=== PATIENT | female | born 2000 | race Caucasian/White ===

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

== ENCOUNTER 2021-01-02 17:45 | Emergency (ER) | payer OTHER ==
[~2021-01-02] VITALS: Ht 165.1 cm; Wt 74.4 kg
[2021-01-02 18:25] LABS: BILIRUBIN Negative (Negative); BLOOD Negative (Negative); CLARITY Clear (Clear); COLOR Yellow (Yellow); GLUCOSE Negative (Negative); KETONE Trace (Negative); LEUKO ESTERASE Trace (Negative); NITRITE Negative (Negative); SPECIFIC GRAVITY >= 1.030 (1.001-1.030)
[2021-01-02 18:31] LABS: BACTERIA 1+; MUCOUS 1+
[2021-01-02 18:54] LABS: BASO % 0.9 % (0.0-1.0); EOS # 0.5 10*3/uL (0.0-0.4); EOS % 10.2 % (1.0-4.0); HEMATOCRIT 40.3 % (37.0-47.0); LYMPH # 1.9 10*3/uL (1.3-4.4); LYMPH % 43.8 % (27.0-41.0); MEAN CELL VOLUME 77.9 fl (81.0-99.0); MEAN PLATELET VOLUME 11.2 fl (9.6-12.3); MONO # 0.3 10*3/uL (0.1-1.0); MONO % 6.6 % (3.0-9.0); NEUT # 1.7 10*3/uL (2.3-7.9); NEUT % 38.5 % (47.0-73.0); PLATELET COUNT AUTOMATED 265 10*3/uL (130-400); RED BLOOD COUNT 5.17 10*6/uL (4.10-5.10); RED CELL DISTRI WIDTH 14.9 % (0-14.5); WHITE BLOOD COUNT 4.4 10*3/uL (4.8-10.8)
[2021-01-02 19:14] LABS: ALBUMIN 4.3 gm/dl (3.1-4.5); ALKALINE PHOSPHATASE 61 U/L (45-117); BUN 14 mg/dl (7-24); CHLORIDE 112 mmol/L (98-107); CREATININE 0.84 mg/dL (0.55-1.02); POTASSIUM 3.5 mmol/L (3.5-5.1); SGOT/AST 17 IU/L (3-35); SGPT/ALT 25 U/L (12-78); SODIUM 140 mmol/L (136-145); TOTAL PROTEIN 7.7 gm/dL (6.4-8.2)
[2021-01-03] MEDS ORDERED: CYCLOBENZAPRINE10 MG PO (00:46)
== END 2021-01-03 01:32 | disposition home or self-care (01) ==
LOC: ED 17:45
PROVIDERS: Physician Assistant
DX: R10.31 Right lower quadrant pain (principal); R10.32 Left lower quadrant pain; M54.5 Low back pain; R35.0 Frequency of micturition; Z79.899 Other long term (current) drug therapy

== ENCOUNTER 2021-02-20 13:31 | Emergency (ER) | payer OTHER ==
[~2021-02-20 13:31] MED LIST changes: +CYCLOBENZAPRINE10 MG PO
[2021-02-20] MEDS ORDERED: PROVENTIL HFA6.7 GM INH (14:38)
[2021-02-20] MEDS ORDERED: NAPROXEN250 MG PO (14:38)
[2021-02-20] MEDS ORDERED: TYLENOL325 M1 PO (14:38)
== END 2021-02-20 15:04 | disposition home or self-care (01) ==
LOC: ED 13:31
DX: J45.909 Unspecified asthma, uncomplicated (principal); R07.89 Other chest pain; M25.512 Pain in left shoulder; R06.02 Shortness of breath; E66.9 Obesity, unspecified; Z79.899 Other long term (current) drug therapy; Z68.30 Body mass index [BMI] 30.0-30.9, adult

== ENCOUNTER 2021-07-11 21:34 | Emergency (ER) | payer OTHER ==
[~2021-07-11] VITALS: Ht 170.1 cm; Wt 68.9 kg
[~2021-07-11 21:34] MED LIST changes: +NAPROXEN250 MG PO; +TYLENOL325 M1 PO
[2021-07-11] MEDS ORDERED: VENTOLIN 02.5 MG/3 M INH (22:01)
[2021-07-11] MEDS ORDERED: MONTELUKAST SOD10 MG PO (22:01)
[2021-07-11] MEDS ORDERED: ADVAIR HFA 115-12 GM INH (22:02)
[2021-07-11] MEDS ORDERED: MUCINEX ER600 MG PO (22:02)
[2021-07-11] MEDS ORDERED: PREDNISONE50 MG PO (22:58)
== END 2021-07-11 23:23 | disposition home or self-care (01) ==
LOC: ED 21:34
DX: J45.901 Unspecified asthma with (acute) exacerbation (principal); Z79.899 Other long term (current) drug therapy

== ENCOUNTER → 2021-07-13 | Outpatient (CLI) | payer OTHER ==
[~2021-07-13] MED LIST changes: +ADVAIR HFA 115-12 GM INH; +MONTELUKAST SOD10 MG PO; +MUCINEX ER600 MG PO; +PREDNISONE50 MG PO
[2021-07-13 15:57] LABS: BASO % 0.8 % (0.0-1.0); EOS # 0.1 10*3/uL (0.0-0.4); EOS % 1.2 % (1.0-4.0); HEMATOCRIT 41.8 % (37.0-47.0); LYMPH # 2.2 10*3/uL (1.3-4.4); LYMPH % 43.3 % (27.0-41.0); MEAN CELL VOLUME 78.4 fl (81.0-99.0); MEAN CORPUSCULAR HGB 24.2 pg (27.0-31.0); MEAN CORPUSCULAR HGB CONC 30.9 g/dl (33.0-37.0); MEAN PLATELET VOLUME 10.4 fl (9.6-12.3); MONO # 0.3 10*3/uL (0.1-1.0); MONO % 4.8 % (3.0-9.0); NEUT # 2.6 10*3/uL (2.3-7.9); NEUT % 49.7 % (47.0-73.0); PLATELET COUNT AUTOMATED 295 10*3/uL (130-400); RED BLOOD COUNT 5.33 10*6/uL (4.10-5.10); RED CELL DISTRI WIDTH 14.6 % (0-14.5); WHITE BLOOD COUNT 5.2 10*3/uL (4.8-10.8)
== END | disposition home or self-care (01) ==
LOC: LAB 15:00
PROVIDERS: ATTEND Internal Medicine Critical Care Medicine
DX: J45.40 Moderate persistent asthma, uncomplicated (principal); J30.2 Other seasonal allergic rhinitis; J45.41 Moderate persistent asthma with (acute) exacerbation; Z79.899 Other long term (current) drug therapy; J84.9 Interstitial pulmonary disease, unspecified

== ENCOUNTER 2021-08-24 15:26 | Emergency (ER) | payer OTHER ==
[~2021-08-24] VITALS: Ht 167.6 cm; Wt 79.4 kg
[2021-08-24 16:45] LABS: BASO % 0.4 % (0.0-1.0); EOS # 0.2 10*3/uL (0.0-0.4); EOS % 3.4 % (1.0-4.0); HEMATOCRIT 39.6 % (37.0-47.0); LYMPH # 1.6 10*3/uL (1.3-4.4); LYMPH % 31.4 % (27.0-41.0); MEAN CELL VOLUME 76.2 fl (81.0-99.0); MEAN CORPUSCULAR HGB 24.2 pg (27.0-31.0); MEAN CORPUSCULAR HGB CONC 31.8 g/dl (33.0-37.0); MEAN PLATELET VOLUME 9.8 fl (9.6-12.3); MONO # 0.4 10*3/uL (0.1-1.0); MONO % 7.3 % (3.0-9.0); NEUT # 2.9 10*3/uL (2.3-7.9); NEUT % 57.1 % (47.0-73.0); PLATELET COUNT AUTOMATED 243 10*3/uL (130-400); RED CELL DISTRI WIDTH 15.3 % (0-14.5); WHITE BLOOD COUNT 5.1 10*3/uL (4.8-10.8)
[2021-08-24 17:00] LABS: ALBUMIN 3.9 gm/dl (3.1-4.5); ALKALINE PHOSPHATASE 51 U/L (45-117); BUN 12 mg/dl (7-24); CHLORIDE 108 mmol/L (98-107); CREATININE 0.83 mg/dL (0.55-1.02); LIPASE 89 U/L (73-393); POTASSIUM 3.6 mmol/L (3.5-5.1); SGOT/AST 15 IU/L (3-35); SGPT/ALT 28 U/L (12-78); SODIUM 139 mmol/L (136-145); TOTAL PROTEIN 7.7 gm/dL (6.4-8.2)
[2021-08-24 17:03] LABS: BETA-HCG, QUANT < 1.0 mIU/mL (1-3)
[2021-08-24] MEDS ORDERED: MECLIZINE HCL25 M2 PO (18:45)
== END 2021-08-24 18:53 | disposition home or self-care (01) ==
LOC: ED 15:26
PROVIDERS: Emergency Medicine
DX: R42 Dizziness and giddiness (principal)

== ENCOUNTER 2021-10-09 21:20 | Emergency (ER) | payer OTHER ==
[~2021-10-09] VITALS: Wt 77.6 kg
[~2021-10-09 21:20] MED LIST changes: +MECLIZINE HCL25 M2 PO
[2021-10-09 21:58] LABS: BILIRUBIN Negative (Negative); BLOOD Negative (Negative); CLARITY Clear (Clear); COLOR Yellow (Yellow); GLUCOSE Negative (Negative); KETONE Negative (Negative); LEUKO ESTERASE Negative (Negative); NITRITE Negative (Negative); SPECIFIC GRAVITY >= 1.030 (1.001-1.030)
[2021-10-09 22:25] LABS: MUCOUS 1+
[2021-10-09 22:53] LABS: BASO % 0.7 % (0.0-1.0); EOS # 0.3 10*3/uL (0.0-0.4); EOS % 5.3 % (1.0-4.0); HEMATOCRIT 41.8 % (37.0-47.0); LYMPH # 2.6 10*3/uL (1.3-4.4); LYMPH % 42.5 % (27.0-41.0); MEAN CELL VOLUME 77.4 fl (81.0-99.0); MEAN CORPUSCULAR HGB CONC 32.3 g/dl (33.0-37.0); MEAN PLATELET VOLUME 9.9 fl (9.6-12.3); MONO # 0.3 10*3/uL (0.1-1.0); MONO % 5.6 % (3.0-9.0); NEUT # 2.7 10*3/uL (2.3-7.9); NEUT % 45.4 % (47.0-73.0); PLATELET COUNT AUTOMATED 316 10*3/uL (130-400); RED CELL DISTRI WIDTH 14.8 % (0-14.5)
[2021-10-09 23:09] LABS: ALBUMIN 4.1 gm/dl (3.1-4.5); ALKALINE PHOSPHATASE 58 U/L (45-117); BUN 10 mg/dl (7-24); CHLORIDE 107 mmol/L (98-107); LIPASE 79 U/L (73-393); POTASSIUM 3.7 mmol/L (3.5-5.1); SGOT/AST 23 IU/L (3-35); SGPT/ALT 32 U/L (12-78); SODIUM 139 mmol/L (136-145); TOTAL PROTEIN 7.8 gm/dL (6.4-8.2)
== END 2021-10-10 01:38 | disposition home or self-care (01) ==
LOC: ED 21:20
PROVIDERS: Emergency Medicine
DX: R10.9 Unspecified abdominal pain (principal)

== ENCOUNTER 2022-04-22 22:02 | Emergency (ER) | payer OTHER ==
[2022-04-22] MEDS ORDERED: CLINDAMYCIN HC300 MG PO (22:42)
== END 2022-04-22 22:59 | disposition home or self-care (01) ==
LOC: ED 22:02
DX: L73.9 Follicular disorder, unspecified (principal); Z79.899 Other long term (current) drug therapy

== ENCOUNTER 2022-04-30 05:11 | Emergency (ER) | payer OTHER ==
[~2022-04-30] VITALS: Wt 97.1 kg
[~2022-04-30 05:11] MED LIST changes: +CLINDAMYCIN HC300 MG PO
[2022-04-30] MEDS ORDERED: HYDROCODONE-AC1 EAC1 PO (05:38)
[2022-04-30] MEDS ORDERED: SEPTDS PO (05:38)
== END 2022-04-30 05:50 | disposition home or self-care (01) ==
LOC: ED 05:11
DX: L02.214 Cutaneous abscess of groin (principal); Z79.899 Other long term (current) drug therapy

== ENCOUNTER 2022-05-21 19:17 | Emergency (ER) | payer OTHER ==
[~2022-05-21] VITALS: Ht 167.6 cm; Wt 97.5 kg
[~2022-05-21 19:17] MED LIST changes: +HYDROCODONE-AC1 EAC1 PO; +SEPTDS PO
[2022-05-21] MEDS ORDERED: SYMB160 INH (19:58)
[2022-05-21] MEDS ORDERED: AMOXICILLIN500 M2 PO (20:35)
== END 2022-05-21 21:04 | disposition home or self-care (01) ==
LOC: ED 19:17
DX: H65.92 Unspecified nonsuppurative otitis media, left ear (principal); H72.92 Unspecified perforation of tympanic membrane, left ear

== ENCOUNTER 2022-06-11 00:23 | Emergency (ER) | payer OTHER ==
[~2022-06-11] VITALS: Ht 167.6 cm; Wt 106.6 kg
[~2022-06-11 00:23] MED LIST changes: +SYMB160 INH
[2022-06-11] MEDS ORDERED: AMOXICILLIN500 M2 PO (02:47)
== END 2022-06-11 02:51 | disposition home or self-care (01) ==
LOC: ED 00:23
DX: J02.9 Acute pharyngitis, unspecified (principal); J45.909 Unspecified asthma, uncomplicated; E66.9 Obesity, unspecified; Z79.899 Other long term (current) drug therapy; Z68.30 Body mass index [BMI] 30.0-30.9, adult

== ENCOUNTER 2022-06-16 06:33 | Emergency (ER) | payer OTHER ==
[~2022-06-16] VITALS: Ht 167.6 cm; Wt 115.7 kg
[2022-06-16 06:59] LABS: BASO % 0.4 % (0.0-1.0); EOS # 0.3 10*3/uL (0.0-0.4); EOS % 3.8 % (1.0-4.0); HEMATOCRIT 37.6 % (37.0-47.0); LYMPH # 1.6 10*3/uL (1.3-4.4); MEAN CELL VOLUME 77.2 fl (81.0-99.0); MEAN CORPUSCULAR HGB 24.8 pg (27.0-31.0); MEAN CORPUSCULAR HGB CONC 32.2 g/dl (33.0-37.0); MEAN PLATELET VOLUME 9.8 fl (9.6-12.3); MONO # 0.4 10*3/uL (0.1-1.0); MONO % 6.2 % (3.0-9.0); NEUT # 4.5 10*3/uL (2.3-7.9); NEUT % 65.3 % (47.0-73.0); PLATELET COUNT AUTOMATED 280 10*3/uL (130-400); RED BLOOD COUNT 4.87 10*6/uL (4.10-5.10); RED CELL DISTRI WIDTH 14.3 % (0-14.5); WHITE BLOOD COUNT 6.8 10*3/uL (4.8-10.8)
[2022-06-16 07:12] LABS: BUN 12 mg/dl (7-24); CHLORIDE 108 mmol/L (98-107); CREATININE 0.81 mg/dL (0.55-1.02); SODIUM 139 mmol/L (136-145)
== END 2022-06-16 10:06 | disposition home or self-care (01) ==
LOC: ED 06:33
PROVIDERS: Internal Medicine
DX: B27.90 Infectious mononucleosis, unspecified without complication (principal)

== ENCOUNTER 2022-10-25 16:54 | Emergency (ER) | payer OTHER ==
[~2022-10-25] VITALS: Wt 61.2 kg
[2022-10-25] MEDS ORDERED: SINGULAIR10 M1 PO (17:14)
[2022-10-25] MEDS ORDERED: ZYRTEC10 M2 PO (17:14)
== END 2022-10-25 18:22 | disposition home or self-care (01) ==
LOC: ED 16:54
DX: S61.303A Unspecified open wound of left middle finger with damage to nail, initial encounter (principal); J45.909 Unspecified asthma, uncomplicated; K21.9 Gastro-esophageal reflux disease without esophagitis; W51.XXXA Accidental striking against or bumped into by another person, initial encounter; Y93.72 Activity, wrestling; Y92.39 Other specified sports and athletic area as the place of occurrence of the external cause; Y99.8 Other external cause status

== ENCOUNTER 2022-11-17 10:23 | Emergency (ER) | payer OTHER ==
[~2022-11-17] VITALS: Wt 99.8 kg
[~2022-11-17 10:23] MED LIST changes: +SINGULAIR10 M1 PO; +ZYRTEC10 M2 PO
[2022-11-17] MEDS ORDERED: BENZONATATE100 M1 PO (10:50)
[2022-11-17] MEDS ORDERED: IBU800 M2 PO (10:50)
== END 2022-11-17 11:05 | disposition home or self-care (01) ==
LOC: ED 10:23
DX: S29.011A Strain of muscle and tendon of front wall of thorax, initial encounter (principal); J06.9 Acute upper respiratory infection, unspecified; R05.9 Cough, unspecified; J45.909 Unspecified asthma, uncomplicated; K21.9 Gastro-esophageal reflux disease without esophagitis; X58.XXXA Exposure to other specified factors, initial encounter; Y93.89 Activity, other specified; Y92.009 Unspecified place in unspecified non-institutional (private) residence as the place of occurrence of the external cause; Y99.8 Other external cause status

== ENCOUNTER 2022-12-20 06:08 | Emergency (ER) | payer OTHER ==
[~2022-12-20] VITALS: Ht 165.1 cm; Wt 99.8 kg
[~2022-12-20 06:08] MED LIST changes: +BENZONATATE100 M1 PO; +IBU800 M2 PO
[2022-12-20] MEDS ORDERED: PROVENTIL HFA6.7 GM INH ×2 (06:34→06:42)
[2022-12-20] MEDS ORDERED: ZITHROMAX250 MG PO (06:34)
[2022-12-20] MEDS ORDERED: MEDROL DOSEPAK4 MG PO (06:34)
== END 2022-12-20 07:00 | disposition home or self-care (01) ==
LOC: ED 06:08
DX: J45.909 Unspecified asthma, uncomplicated (principal); K21.9 Gastro-esophageal reflux disease without esophagitis; Z88.8 Allergy status to other drugs, medicaments and biological substances

== ENCOUNTER 2023-01-01 20:51 | Emergency (ER) | payer OTHER ==
[~2023-01-01] VITALS: Ht 165.1 cm; Wt 99.8 kg
== END 2023-01-01 22:17 | disposition home or self-care (01) ==
LOC: ED 20:51
DX: S90.31XA Contusion of right foot, initial encounter (principal); J45.909 Unspecified asthma, uncomplicated; K21.9 Gastro-esophageal reflux disease without esophagitis; Z88.8 Allergy status to other drugs, medicaments and biological substances; W31.89XA Contact with other specified machinery, initial encounter; Y93.89 Activity, other specified; Y92.89 Other specified places as the place of occurrence of the external cause; Y99.0 Civilian activity done for income or pay

== ENCOUNTER 2023-02-13 00:45 | Emergency (ER) | payer OTHER ==
[~2023-02-13] VITALS: Ht 165.1 cm; Wt 98.0 kg
[2023-02-13 01:56] LABS: BASO % 0.6 % (0.0-1.0); EOS % 0.3 % (1.0-4.0); HEMATOCRIT 39.7 % (37.0-47.0); LYMPH # 2.1 10*3/uL (1.3-4.4); LYMPH % 32.3 % (27.0-41.0); MEAN CELL VOLUME 79.7 fl (81.0-99.0); MEAN CORPUSCULAR HGB 25.7 pg (27.0-31.0); MEAN CORPUSCULAR HGB CONC 32.2 g/dl (33.0-37.0); MEAN PLATELET VOLUME 9.9 fl (9.6-12.3); MONO # 0.3 10*3/uL (0.1-1.0); MONO % 5.1 % (3.0-9.0); NEUT % 61.4 % (47.0-73.0); PLATELET COUNT AUTOMATED 301 10*3/uL (130-400); RED BLOOD COUNT 4.98 10*6/uL (4.10-5.10); RED CELL DISTRI WIDTH 14.6 % (0-14.5); WHITE BLOOD COUNT 6.5 10*3/uL (4.8-10.8)
[2023-02-13 02:22] LABS: ALKALINE PHOSPHATASE 52 U/L (46-116); BUN 16 mg/dl (9-23); CHLORIDE 108 mmol/L (98-107); POTASSIUM 3.8 mmol/L (3.4-5.1); SGPT/ALT 12 U/L (10-49); TOTAL PROTEIN 7.8 gm/dL (6.0-8.0)
[2023-02-13] MEDS ORDERED: SYMB160 INH (03:32)
[2023-02-13] MEDS ORDERED: ZITHROMAX250 MG PO (03:32)
[2023-02-13] MEDS ORDERED: BENZONATATE200 MG PO (03:32)
== END 2023-02-13 03:53 | disposition home or self-care (01) ==
LOC: ED 00:45
PROVIDERS: Emergency Medicine
DX: J45.909 Unspecified asthma, uncomplicated (principal); J44.1 Chronic obstructive pulmonary disease with (acute) exacerbation; E87.8 Other disorders of electrolyte and fluid balance, not elsewhere classified; E83.41 Hypermagnesemia; E83.39 Other disorders of phosphorus metabolism; K21.9 Gastro-esophageal reflux disease without esophagitis; Z88.8 Allergy status to other drugs, medicaments and biological substances

== ENCOUNTER 2023-04-11 20:11 | Emergency (ER) | payer OTHER ==
[~2023-04-11] VITALS: Ht 165.1 cm; Wt 95.3 kg
[~2023-04-11 20:11] MED LIST changes: +BENZONATATE200 MG PO
== END 2023-04-11 23:07 | disposition home or self-care (01) ==
LOC: ED 20:11
DX: H93.91 Unspecified disorder of right ear (principal); J45.909 Unspecified asthma, uncomplicated; K21.9 Gastro-esophageal reflux disease without esophagitis

== ENCOUNTER 2023-04-29 19:37 | Emergency (ER) | payer OTHER ==
[~2023-04-29] VITALS: Ht 167.6 cm; Wt 98.0 kg
[2023-04-29] MEDS ORDERED: AMOX-CLAV 875-1 EACH PO (19:51)
== END 2023-04-29 21:10 | disposition home or self-care (01) ==
LOC: ED 19:37
DX: J02.8 Acute pharyngitis due to other specified organisms (principal); R51.9 Headache, unspecified; J45.909 Unspecified asthma, uncomplicated; K21.9 Gastro-esophageal reflux disease without esophagitis; Z88.8 Allergy status to other drugs, medicaments and biological substances; Z20.822 Contact with and (suspected) exposure to COVID-19

== ENCOUNTER 2023-07-10 13:22 | Emergency (ER) | payer OTHER ==
[~2023-07-10] VITALS: Wt 98.9 kg
[~2023-07-10 13:22] MED LIST changes: +AMOX-CLAV 875-1 EACH PO; +CIPRO500 MG PO
[2023-07-10 14:14] LABS: BILIRUBIN Negative (Negative); BLOOD Negative (Negative); CLARITY Clear (Clear); COLOR Yellow (Yellow); GLUCOSE Negative (Negative); KETONE Trace (Negative); LEUKO ESTERASE Negative (Negative); NITRITE Negative (Negative); SPECIFIC GRAVITY >= 1.030 (1.001-1.030)
[2023-07-10 14:16] LABS: BASO % 0.8 % (0.0-1.0); EOS # 0.2 10*3/uL (0.0-0.4); EOS % 5.7 % (1.0-4.0); HEMATOCRIT 36.2 % (37.0-47.0); LYMPH # 1.4 10*3/uL (1.3-4.4); LYMPH % 36.1 % (27.0-41.0); MEAN CELL VOLUME 79.2 fl (81.0-99.0); MEAN CORPUSCULAR HGB CONC 32.9 g/dl (33.0-37.0); MEAN PLATELET VOLUME 10.3 fl (9.6-12.3); MONO # 0.3 10*3/uL (0.1-1.0); MONO % 6.5 % (3.0-9.0); NEUT % 50.9 % (47.0-73.0); PLATELET COUNT AUTOMATED 237 10*3/uL (130-400); RED BLOOD COUNT 4.57 10*6/uL (4.10-5.10); RED CELL DISTRI WIDTH 15.3 % (0-14.5); WHITE BLOOD COUNT 3.9 10*3/uL (4.8-10.8)
[2023-07-10 14:30] LABS: BACTERIA TRACE; MUCOUS 1+
[2023-07-10 14:36] LABS: ALKALINE PHOSPHATASE 53 U/L (46-116); BUN 8 mg/dl (9-23); CHLORIDE 109 mmol/L (98-107); POTASSIUM 3.9 mmol/L (3.4-5.1); SGPT/ALT 14 U/L (5-49); TOTAL PROTEIN 7.1 gm/dL (6.0-8.0)
== END 2023-07-10 15:15 | disposition home or self-care (01) ==
LOC: ED 13:22
PROVIDERS: Nurse Practitioner Family
DX: Z11.3 Encounter for screening for infections with a predominantly sexual mode of transmission (principal); J45.909 Unspecified asthma, uncomplicated; K21.9 Gastro-esophageal reflux disease without esophagitis

== ENCOUNTER 2023-07-30 13:50 | Emergency (ER) | payer OTHER ==
[~2023-07-30] VITALS: Ht 165.1 cm; Wt 98.0 kg
== END 2023-07-30 18:32 | disposition left against medical advice (07) ==
LOC: ED 13:50
DX: R10.9 Unspecified abdominal pain (principal); Z53.21 Procedure and treatment not carried out due to patient leaving prior to being seen by health care provider

== ENCOUNTER 2023-07-30 20:44 | Emergency (ER) | payer OTHER | END 2023-07-30 23:12 | disposition left against medical advice (07) | LOC: ED 20:44 | DX: R10.9 Unspecified abdominal pain (principal); Z53.21 Procedure and treatment not carried out due to patient leaving prior to being seen by health care provider ==

== ENCOUNTER 2023-08-09 10:26 | Emergency (ER) | payer OTHER ==
[~2023-08-09] VITALS: Wt 94.3 kg
[2023-08-09] MEDS ORDERED: VENT7GM INH (10:36)
[2023-08-09 10:56] LABS: BASO % 0.8 % (0.0-1.0); EOS # 0.1 10*3/uL (0.0-0.4); HEMATOCRIT 36.7 % (37.0-47.0); LYMPH # 1.3 10*3/uL (1.3-4.4); LYMPH % 26.5 % (27.0-41.0); MEAN CELL VOLUME 78.4 fl (81.0-99.0); MEAN CORPUSCULAR HGB 25.4 pg (27.0-31.0); MEAN CORPUSCULAR HGB CONC 32.4 g/dl (33.0-37.0); MEAN PLATELET VOLUME 9.4 fl (9.6-12.3); MONO # 0.3 10*3/uL (0.1-1.0); NEUT # 3.2 10*3/uL (2.3-7.9); NEUT % 65.7 % (47.0-73.0); PLATELET COUNT AUTOMATED 256 10*3/uL (130-400); RED BLOOD COUNT 4.68 10*6/uL (4.10-5.10); RED CELL DISTRI WIDTH 15.2 % (0-14.5); WHITE BLOOD COUNT 4.8 10*3/uL (4.8-10.8)
[2023-08-09 11:41] LABS: ALKALINE PHOSPHATASE 48 U/L (46-116); BUN 12 mg/dl (9-23); CHLORIDE 106 mmol/L (98-107); LIPASE 30 U/L (12-53); POTASSIUM 3.7 mmol/L (3.4-5.1); SGPT/ALT 13 U/L (5-49); TOTAL PROTEIN 7.4 gm/dL (6.0-8.0)
[2023-08-09 12:07] LABS: BILIRUBIN Negative (Negative); BLOOD Negative (Negative); CLARITY Cloudy (Clear); COLOR Yellow (Yellow); GLUCOSE Negative (Negative); KETONE 2+ (Negative); LEUKO ESTERASE 1+ (Negative); NITRITE Negative (Negative); PH 5.5 (4.5-8.0); SPECIFIC GRAVITY >= 1.030 (1.001-1.030)
[2023-08-09 12:22] LABS: BACTERIA 1+; MUCOUS 1+
[2023-08-09] MEDS ORDERED: CEPHALEXIN500 M1 PO (13:48)
== END 2023-08-09 13:52 | disposition home or self-care (01) ==
LOC: ED 10:26
PROVIDERS: Emergency Medicine
DX: O21.9 Vomiting of pregnancy, unspecified (principal); R10.2 Pelvic and perineal pain; J45.909 Unspecified asthma, uncomplicated; K21.9 Gastro-esophageal reflux disease without esophagitis; Z88.8 Allergy status to other drugs, medicaments and biological substances; Z3A.09 9 weeks gestation of pregnancy; Z98.890 Other specified postprocedural states

== ENCOUNTER 2023-08-10 17:15 | Emergency (ER) | payer OTHER ==
[~2023-08-10] VITALS: Ht 165.1 cm; Wt 94.3 kg
[~2023-08-10 17:15] MED LIST changes: +VENT7GM INH
[2023-08-10 18:34] LABS: BASO % 0.3 % (0.0-1.0); EOS % 0.2 % (1.0-4.0); HEMATOCRIT 37.2 % (37.0-47.0); LYMPH # 1.1 10*3/uL (1.3-4.4); LYMPH % 17.1 % (27.0-41.0); MEAN CORPUSCULAR HGB 25.5 pg (27.0-31.0); MEAN CORPUSCULAR HGB CONC 32.3 g/dl (33.0-37.0); MEAN PLATELET VOLUME 10.3 fl (9.6-12.3); MONO # 0.3 10*3/uL (0.1-1.0); MONO % 4.7 % (3.0-9.0); NEUT # 4.9 10*3/uL (2.3-7.9); NEUT % 77.4 % (47.0-73.0); PLATELET COUNT AUTOMATED 265 10*3/uL (130-400); RED BLOOD COUNT 4.71 10*6/uL (4.10-5.10); RED CELL DISTRI WIDTH 15.3 % (0-14.5); WHITE BLOOD COUNT 6.4 10*3/uL (4.8-10.8)
[2023-08-10 18:55] LABS: ALKALINE PHOSPHATASE 51 U/L (46-116); BUN 12 mg/dl (9-23); CHLORIDE 105 mmol/L (98-107); SGPT/ALT 13 U/L (5-49); TOTAL PROTEIN 7.6 gm/dL (6.0-8.0)
== END 2023-08-10 20:51 | disposition home or self-care (01) ==
LOC: ED 17:15
PROVIDERS: Nurse Practitioner
DX: O21.0 Mild hyperemesis gravidarum (principal); R55 Syncope and collapse; J45.909 Unspecified asthma, uncomplicated; K21.9 Gastro-esophageal reflux disease without esophagitis; Z3A.09 9 weeks gestation of pregnancy

== ENCOUNTER 2023-09-10 17:47 | Emergency (ER) | payer OTHER ==
[~2023-09-10] VITALS: Ht 165.1 cm; Wt 94.3 kg
[2023-09-10] MEDS ORDERED: SLEEP AID25 M1 PO (18:15)
[2023-09-10 18:32] LABS: BASO % 0.5 % (0.0-1.0); EOS # 0.5 10*3/uL (0.0-0.4); EOS % 5.3 % (1.0-4.0); HEMATOCRIT 37.9 % (37.0-47.0); LYMPH # 1.9 10*3/uL (1.3-4.4); LYMPH % 22.3 % (27.0-41.0); MEAN CELL VOLUME 80.6 fl (81.0-99.0); MEAN CORPUSCULAR HGB 25.3 pg (27.0-31.0); MEAN CORPUSCULAR HGB CONC 31.4 g/dl (33.0-37.0); MEAN PLATELET VOLUME 10.1 fl (9.6-12.3); MONO # 0.5 10*3/uL (0.1-1.0); NEUT # 5.6 10*3/uL (2.3-7.9); NEUT % 65.7 % (47.0-73.0); PLATELET COUNT AUTOMATED 257 10*3/uL (130-400); RED CELL DISTRI WIDTH 14.9 % (0-14.5); WHITE BLOOD COUNT 8.5 10*3/uL (4.8-10.8)
[2023-09-10 18:36] LABS: BILIRUBIN Negative (Negative); BLOOD Negative (Negative); CLARITY Clear (Clear); COLOR Yellow (Yellow); GLUCOSE Negative (Negative); KETONE Trace (Negative); LEUKO ESTERASE Negative (Negative); NITRITE Negative (Negative); SPECIFIC GRAVITY >= 1.030 (1.001-1.030)
[2023-09-10 18:46] LABS: MUCOUS 2+
[2023-09-10 18:59] LABS: ALKALINE PHOSPHATASE 45 U/L (46-116); BUN 13 mg/dl (9-23); CHLORIDE 105 mmol/L (98-107); POTASSIUM 3.8 mmol/L (3.4-5.1); SGPT/ALT 9 U/L (5-49); TOTAL PROTEIN 7.1 gm/dL (6.0-8.0)
== END 2023-09-10 19:20 | disposition home or self-care (01) ==
LOC: ED 17:47
PROVIDERS: Physician Assistant Medical
DX: O26.851 Spotting complicating pregnancy, first trimester (principal); Z79.899 Other long term (current) drug therapy; Z3A.11 11 weeks gestation of pregnancy

== ENCOUNTER 2023-09-17 21:08 | Emergency (ER) | payer OTHER ==
[~2023-09-17 21:08] MED LIST changes: +SLEEP AID25 M1 PO
[2023-09-17 23:20] LABS: BASO % 0.4 % (0.0-1.0); EOS # 0.5 10*3/uL (0.0-0.4); EOS % 5.7 % (1.0-4.0); HEMATOCRIT 37.2 % (37.0-47.0); LYMPH # 2.3 10*3/uL (1.3-4.4); LYMPH % 27.6 % (27.0-41.0); MEAN CELL VOLUME 80.2 fl (81.0-99.0); MEAN CORPUSCULAR HGB 26.1 pg (27.0-31.0); MEAN CORPUSCULAR HGB CONC 32.5 g/dl (33.0-37.0); MONO # 0.5 10*3/uL (0.1-1.0); MONO % 5.5 % (3.0-9.0); NEUT # 5.1 10*3/uL (2.3-7.9); NEUT % 60.6 % (47.0-73.0); PLATELET COUNT AUTOMATED 258 10*3/uL (130-400); RED BLOOD COUNT 4.64 10*6/uL (4.10-5.10); WHITE BLOOD COUNT 8.4 10*3/uL (4.8-10.8)
[2023-09-17 23:23] LABS: BILIRUBIN Negative (Negative); BLOOD Negative (Negative); CLARITY Cloudy (Clear); COLOR Yellow (Yellow); GLUCOSE Negative (Negative); KETONE Trace (Negative); LEUKO ESTERASE 1+ (Negative); NITRITE Negative (Negative); SPECIFIC GRAVITY 1.025 (1.001-1.030)
[2023-09-17 23:33] LABS: BACTERIA 1+; EPITHELIAL CELLS 16-20; MUCOUS 1+
[2023-09-17 23:41] LABS: ACT PARTIAL THROMBO TIME 27.4 SECONDS (20.0-32.1)
[2023-09-17 23:52] LABS: ALKALINE PHOSPHATASE 43 U/L (46-116); BUN 9 mg/dl (9-23); CHLORIDE 106 mmol/L (98-107); LIPASE 48 U/L (12-53); POTASSIUM 3.8 mmol/L (3.4-5.1); SGPT/ALT 15 U/L (5-49); TOTAL PROTEIN 7.4 gm/dL (6.0-8.0)
[2023-09-18] MEDS ORDERED: AMOX-CLAV 875-1 EACH PO (00:31)
== END 2023-09-18 01:38 | disposition home or self-care (01) ==
LOC: ED 21:08
PROVIDERS: Internal Medicine
DX: O23.41 Unspecified infection of urinary tract in pregnancy, first trimester (principal); N39.0 Urinary tract infection, site not specified; O26.851 Spotting complicating pregnancy, first trimester; J45.909 Unspecified asthma, uncomplicated; K21.9 Gastro-esophageal reflux disease without esophagitis; Z3A.12 12 weeks gestation of pregnancy; R10.2 Pelvic and perineal pain

== ENCOUNTER 2023-12-30 15:46 | Emergency (ER) | payer OTHER ==
[~2023-12-30] VITALS: Wt 94.3 kg
[2023-12-30] MEDS ORDERED: AZITHROMYCIN 250 MG TAB PO ONE (16:30)
[2023-12-30 16:56] LABS: BILIRUBIN Negative (Negative); BLOOD Negative (Negative); CLARITY Cloudy (Clear); COLOR Dark Yellow (Yellow); GLUCOSE Negative (Negative); KETONE Trace (Negative); LEUKO ESTERASE 1+ (Negative); NITRITE Negative (Negative); SPECIFIC GRAVITY >= 1.030 (1.001-1.030)
[2023-12-30 17:05] LABS: BACTERIA 2+; EPITHELIAL CELLS TNTC
[2023-12-30 17:06] LABS: MUCOUS 2+
[2023-12-30] MEDS ORDERED: Lidocaine Hydrochloride 2 ML AMP IM ONE (17:10)
[2023-12-30] MEDS ORDERED: MACROBID100 M1 PO (17:12)
[2023-12-30] MEDS ORDERED: Lidocaine Hydrochloride 2 ML IV ONE (17:17)
== END 2023-12-30 17:32 | disposition short-term general hospital (02) ==
LOC: ED 15:46
PROVIDERS: Internal Medicine
DX: O26.892 Other specified pregnancy related conditions, second trimester (principal); R82.71 Bacteriuria; J45.909 Unspecified asthma, uncomplicated; K21.9 Gastro-esophageal reflux disease without esophagitis; Z3A.24 24 weeks gestation of pregnancy

== ENCOUNTER 2024-02-18 19:55 | Emergency (ER) | payer OTHER ==
[~2024-02-18] VITALS: Ht 165.1 cm; Wt 99.8 kg
[2024-02-18] MEDS ORDERED: ACETAMINOPHEN 325 MG TAB PO ONE (20:30)
== END 2024-02-18 20:47 | disposition home or self-care (01) ==
LOC: ED 19:55
DX: O9A.211 Injury, poisoning and certain other consequences of external causes complicating pregnancy, first trimester (principal); O99.511 Diseases of the respiratory system complicating pregnancy, first trimester; S00.412A Abrasion of left ear, initial encounter; J45.909 Unspecified asthma, uncomplicated; K21.9 Gastro-esophageal reflux disease without esophagitis; Z3A.00 Weeks of gestation of pregnancy not specified; X58.XXXA Exposure to other specified factors, initial encounter; Y93.89 Activity, other specified; Y92.009 Unspecified place in unspecified non-institutional (private) residence as the place of occurrence of the external cause; Y99.8 Other external cause status

== ENCOUNTER 2024-05-18 13:12 | Emergency (ER) | payer OTHER ==
[~2024-05-18] VITALS: Ht 165.1 cm; Wt 95.3 kg
[2024-05-18] MEDS ORDERED: methylPREDNISolone sod succ 125 MG VIAL IM ONE (14:05)
[2024-05-18] MEDS ORDERED: Albuterol Sulfate 2.5 MG/3 ML VIAL NEB ONE (14:05)
[2024-05-18] MEDS ORDERED: AVPAK AZITHROM250 M1 PO (14:07)
[2024-05-18] MEDS ORDERED: PREDNISONE20 M1 PO (14:07)
== END 2024-05-18 14:55 | disposition home or self-care (01) ==
LOC: ED 13:12
DX: J45.901 Unspecified asthma with (acute) exacerbation (principal); K21.9 Gastro-esophageal reflux disease without esophagitis

== ENCOUNTER 2024-07-19 17:30 | Emergency (ER) | payer OTHER ==
[~2024-07-19] VITALS: Ht 165.1 cm; Wt 102.1 kg
[~2024-07-19 17:30] MED LIST changes: +AVPAK AZITHROM250 M1 PO
[2024-07-19] MEDS ORDERED: AMOX-CLAV 875-1 EACH PO (18:04)
[2024-07-19] MEDS ORDERED: Amoxicillin/Clavulanate Pota 875 MG TAB PO ONE (18:20)
== END 2024-07-19 18:17 | disposition home or self-care (01) ==
LOC: ED 17:30
DX: J02.0 Streptococcal pharyngitis (principal); J45.909 Unspecified asthma, uncomplicated; K21.9 Gastro-esophageal reflux disease without esophagitis; Z88.8 Allergy status to other drugs, medicaments and biological substances

== ENCOUNTER 2024-09-03 20:52 | Emergency (ER) | payer OTHER ==
[~2024-09-03] VITALS: Ht 165.1 cm; Wt 59.0 kg
[2024-09-03] MEDS ORDERED: Albuterol Sulf/Ipratropium 3 ML VIAL NEB ONE (21:10)
[2024-09-03] MEDS ORDERED: methylPREDNISolone sod succ 125 MG VIAL IM ONE (21:10)
[2024-09-03] MEDS ORDERED: Oseltamivir Phosphate 75 MG CAP PO ONE (22:05)
[2024-09-03] MEDS ORDERED: TAMIFLU 75MG CA75 MG PO (22:05)
[2024-09-03] MEDS ORDERED: ALBUTEROL 8 GM INHALER INH ONE (22:10)
== END 2024-09-03 22:23 | disposition home or self-care (01) ==
LOC: ED 20:52
DX: J10.1 Influenza due to other identified influenza virus with other respiratory manifestations (principal); Z20.822 Contact with and (suspected) exposure to COVID-19; J45.909 Unspecified asthma, uncomplicated; E66.9 Obesity, unspecified; Z79.899 Other long term (current) drug therapy; Z68.30 Body mass index [BMI] 30.0-30.9, adult

== ENCOUNTER 2025-02-17 00:06 | Emergency (ER) | payer OTHER ==
[~2025-02-17] VITALS: Ht 165.1 cm; Wt 59.0 kg
[2025-02-17] MEDS ORDERED: Dexamethasone Sodium Phospha 20 MG/5 ML VIAL IM ONE (00:25)
[2025-02-17] MEDS ORDERED: Albuterol Sulf/Ipratropium 3 ML VIAL NEB ONE (00:25)
[2025-02-17] MEDS ORDERED: ZITHROMAX250 MG PO (01:13)
[2025-02-17] MEDS ORDERED: PREDNISONE20 M1 PO (01:13)
[2025-02-17] MEDS ORDERED: SYMB160 INH (01:13)
== END 2025-02-17 01:15 | disposition home or self-care (01) ==
LOC: ED 00:06
DX: J45.901 Unspecified asthma with (acute) exacerbation (principal); K21.9 Gastro-esophageal reflux disease without esophagitis; Z79.899 Other long term (current) drug therapy

== ENCOUNTER → 2025-03-13 | Outpatient (CLI) | payer OTHER | END | disposition home or self-care (01) | LOC: RAD 10:32 | PROVIDERS: ATTEND Nurse Practitioner Family | DX: Z01.810 Encounter for preprocedural cardiovascular examination (principal); J44.9 Chronic obstructive pulmonary disease, unspecified; J98.4 Other disorders of lung ==

== ENCOUNTER 2025-06-07 19:44 | Emergency (ER) | payer OTHER ==
[~2025-06-07] VITALS: Ht 165.1 cm; Wt 109.3 kg
[2025-06-07 21:34] LABS: BASO # 0.0 10*3/uL (0.0-0.1); BASO % 1.0 % (0.0-1.0); EOS # 0.3 10*3/uL (0.0-0.4); EOS % 7.9 % (1.0-4.0); MEAN CELL VOLUME 80.7 fl (81.0-99.0); MEAN CORPUSCULAR HGB 24.9 pg (27.0-31.0); MEAN PLATELET VOLUME 10.2 fl (9.6-12.3); MONO # 0.3 10*3/uL (0.1-1.0); MONO % 9.2 % (3.0-9.0); NEUT # 1.2 10*3/uL (2.3-7.9); NEUT % 38.1 % (47.0-73.0); NUCLEATED RED BLOOD CELL 0.0 % (0.0-0.0); NUCLEATED RED BLOOD CELL 0.0 10*3/uL (0.0-0.0); PLATELET COUNT AUTOMATED 214 10*3/uL (130-400); RED CELL DISTRI WIDTH 14.0 % (0-14.5)
[2025-06-07 21:48] LABS: BILIRUBIN Negative (Negative); BLOOD Negative (Negative); CLARITY Clear (Clear); COLOR Yellow (Yellow); KETONE Negative (Negative); LEUKO ESTERASE Negative (Negative); NITRITE Negative (Negative); PH 5.5 (4.5-8.0); SPECIFIC GRAVITY 1.025 (1.001-1.030); UROBILINOGEN 0.2 E.U./dl (0.0-1.0)
[2025-06-07 21:56] LABS: MUCOUS 1+; WBC 0-2 wbc/hpf (0-5)
[2025-06-07 22:09] LABS: BUN 11 mg/dl (9-23); SGPT/ALT 17 U/L (5-49)
== END 2025-06-08 00:14 | disposition home or self-care (01) ==
LOC: ED 19:44
PROVIDERS: Emergency Medicine
DX: R10.31 Right lower quadrant pain (principal); J45.909 Unspecified asthma, uncomplicated; Z79.899 Other long term (current) drug therapy

== ENCOUNTER 2025-06-30 16:42 | Emergency (ER) | payer OTHER ==
[~2025-06-30] VITALS: Ht 165.1 cm; Wt 104.3 kg
[2025-06-30] MEDS ORDERED: METHOCARBAMOL 500 MG TAB PO ONE (19:35)
== END 2025-06-30 19:43 | disposition home or self-care (01) ==
LOC: ED 16:42
DX: S01.01XA Laceration without foreign body of scalp, initial encounter (principal); S13.9XXA Sprain of joints and ligaments of unspecified parts of neck, initial encounter; Z79.899 Other long term (current) drug therapy; V43.62XA Car passenger injured in collision with other type car in traffic accident, initial encounter; Y93.89 Activity, other specified; Y92.89 Other specified places as the place of occurrence of the external cause; Y99.8 Other external cause status

== ENCOUNTER 2025-08-10 00:46 | Emergency (ER) | payer OTHER ==
[~2025-08-10] VITALS: Ht 162.6 cm; Wt 106.6 kg
[2025-08-10] MEDS ORDERED: Albuterol Sulf/Ipratropium 3 ML VIAL NEB ONE (01:15)
[2025-08-10] MEDS ORDERED: MEDROL DOSEPAK4 MG PO (02:21)
== END 2025-08-10 02:40 | disposition home or self-care (01) ==
LOC: ED 00:46
DX: B97.4 Respiratory syncytial virus as the cause of diseases classified elsewhere (principal); J45.909 Unspecified asthma, uncomplicated; K21.9 Gastro-esophageal reflux disease without esophagitis; Z20.822 Contact with and (suspected) exposure to COVID-19

== ENCOUNTER 2025-08-26 21:05 | Emergency (ER) | payer OTHER ==
[~2025-08-26] VITALS: Ht 165.1 cm; Wt 90.7 kg
[2025-08-26] MEDS ORDERED: Albuterol Sulf/Ipratropium 3 ML VIAL NEB ONE (21:35)
[2025-08-26] MEDS ORDERED: PREDNISONE20 M1 PO (23:42)
== END 2025-08-26 23:50 | disposition home or self-care (01) ==
LOC: ED 21:05
DX: J45.901 Unspecified asthma with (acute) exacerbation (principal); K21.9 Gastro-esophageal reflux disease without esophagitis